=== PATIENT | female | born 1975 | race Caucasian/White ===

== ENCOUNTER 2025-10-13 08:18 | Emergency (ER) | payer OTHER ==
[2025-10-13] MEDS: Ketorolac 30 MG/ML SDV IM ONE (10:23)
== END 2025-10-13 10:42 | disposition home or self-care (01) ==
LOC: MW.ED 08:18
DX: M17.11 Unilateral primary osteoarthritis, right knee (principal); G89.29 Other chronic pain; I10 Essential (primary) hypertension; J44.9 Chronic obstructive pulmonary disease, unspecified; Z79.899 Other long term (current) drug therapy; Z86.718 Personal history of other venous thrombosis and embolism
CPT/HCPCS: 73562; 93971; 96372; 99284; J1885; J8540